=== PATIENT | female | born 1995 | race Caucasian/White ===

== ENCOUNTER 2021-02-25 21:41 | Emergency (ER) | payer OTHER ==
[~2021-02-25] VITALS: Ht 165.1 cm; Wt 63.2 kg
--- NOTE | 2021-02-25 22:04 | NUR ---
Dr Holt into eval patient.
--- NOTE | 2021-02-25 22:13 | NUR ---
Patient discharged back to [facility] with staff member in stable condition. Written and verbal after care instructions given. Patient verbalizes understanding of instructions. Stressed follow up or return to ER for worsening s/s.
[2021-02-25 22:14] VITALS: BP 119/75
== END 2021-02-25 22:15 | disposition home or self-care (01) ==
LOC: ER 21:52
DX: Z03.89 Encounter for observation for other suspected diseases and conditions ruled out (principal)
CPT/HCPCS: A4663